=== PATIENT | female | born 1965 | race Caucasian/White ===

== ENCOUNTER → 2020-03-14 12:13 | Outpatient (BNVA) | payer OTHER, SELFPAY | PROVIDERS: Family Provider Nurse Practitioner Family; PCP Nurse Practitioner Family; Visit Provider Nurse Practitioner Family | DX: R53.83 Other fatigue (principal); F41.0 Panic disorder [episodic paroxysmal anxiety]; N95.2 Postmenopausal atrophic vaginitis; E03.9 Hypothyroidism, unspecified | CPT/HCPCS: 80053; 80061; 82607; 82652; 84443; 85025 ==

== ENCOUNTER → 2020-05-25 12:16 | Outpatient (BNVA) | payer OTHER, SELFPAY | PROVIDERS: Family Provider Nurse Practitioner Family; PCP Nurse Practitioner Family; Visit Provider Nurse Practitioner Family | DX: E03.9 Hypothyroidism, unspecified (principal); R53.83 Other fatigue; R03.0 Elevated blood-pressure reading, without diagnosis of hypertension; F41.9 Anxiety disorder, unspecified; M25.569 Pain in unspecified knee | CPT/HCPCS: 80053; 84439; 84443 ==

== ENCOUNTER 2020-11-17 13:50 | Outpatient (CLI) | payer OTHER, SELFPAY ==
--- NOTE | 2020-11-17 14:13 | MM_ITS ---
WS: [id number] BILATERAL DIGITAL SCREENING MAMMOGRAPHY WITH CAD CLINICAL INFORMATION: Z12.31 - Encounter for screening mammogram for malignant ... HISTORY: Screening mammogram. No current complaints. COMPARISON: TECHNIQUE: Bilateral CC and MLO views. FINDINGS: The breasts are composed of heterogeneous fibroglandular density tissue, which can limit the detectio n of small underlying mass lesions. No suspicious mass, asymmetry, calcifications, or architectural d istortion. No evidence of malignancy. Cluster calcifications right breast. Intramammary lymph node po sterior depth right breast. MM/[id number] IMPRESSION: BI-RADS: 2-Benign FOLLOW UP: 1 Year Follow-up Recommend return to annual screening mammography.
== END 2020-11-17 13:51 | disposition home or self-care (01) ==
PROVIDERS: PCP Nurse Practitioner Family; Visit Provider Nurse Practitioner Family
DX: Z12.31 Encounter for screening mammogram for malignant neoplasm of breast (principal)
CPT/HCPCS: 77067

== ENCOUNTER → 2020-11-18 16:06 | Outpatient (BNVA) | payer OTHER, SELFPAY | PROVIDERS: PCP Nurse Practitioner Family; Visit Provider Family Medicine | DX: N90.4 Leukoplakia of vulva (principal) | CPT/HCPCS: 88175 ==

== ENCOUNTER → 2021-04-14 15:35 | Outpatient (BNVA) | payer OTHER, SELFPAY | PROVIDERS: PCP Nurse Practitioner Family; Visit Provider Nurse Practitioner Family | DX: K21.9 Gastro-esophageal reflux disease without esophagitis (principal); R53.83 Other fatigue; E03.9 Hypothyroidism, unspecified; N90.4 Leukoplakia of vulva; L57.0 Actinic keratosis; E66.9 Obesity, unspecified | CPT/HCPCS: 80053; 80061; 84439; 84443; 84480; 85025 ==

== ENCOUNTER 2022-10-08 14:36 | Outpatient (CLI) | payer OTHER, SELFPAY ==
--- NOTE | 2022-10-08 14:59 | MM_ITS ---
WS: [id number] BILATERAL 3D TOMOSYNTHESIS DIGITAL SCREENING MAMMOGRAPHY WITH CAD CLINICAL INFORMATION: SCREENING HISTORY: Screening mammogram. No current complaints. COMPARISON: 2020 TECHNIQUE: Bilateral CC and MLO views. FINDINGS: The breasts are composed of heterogeneous fibroglandular density tissue, which can limit the detectio n of small underlying mass lesions. No suspicious mass, asymmetry, calcifications, or architectural d istortion. No evidence of malignancy. Stable clustered calcifications RIGHT breast. MM/[id number] IMPRESSION: BI-RADS: 2-Benign FOLLOW UP: 1 Year Follow-up Recommend return to annual screening mammography.
== END 2022-10-08 14:37 | disposition home or self-care (01) ==
LOC: RAD 14:40
PROVIDERS: PCP Nurse Practitioner Family; Visit Provider Nurse Practitioner Family
DX: Z12.31 Encounter for screening mammogram for malignant neoplasm of breast (principal)
CPT/HCPCS: 77063; 77067

== ENCOUNTER → 2023-08-16 13:08 | Outpatient (BNVA) | payer OTHER, SELFPAY | PROVIDERS: PCP Nurse Practitioner Family; Visit Provider Nurse Practitioner Family | DX: R09.89 Other specified symptoms and signs involving the circulatory and respiratory systems (principal); N90.4 Leukoplakia of vulva; E03.9 Hypothyroidism, unspecified; Z00.00 Encounter for general adult medical examination without abnormal findings; L57.0 Actinic keratosis; K21.9 Gastro-esophageal reflux disease without esophagitis; R03.0 Elevated blood-pressure reading, without diagnosis of hypertension | CPT/HCPCS: 80053; 80061; 83695; 84439; 84443; 84481; 85025 ==

== ENCOUNTER 2023-09-26 10:03 | Outpatient (CLI) | payer OTHER, SELFPAY ==
--- NOTE | 2023-09-26 10:15 | USCV_ITS ---
Kala Cason Age: 58 Gender: F : 1965 Exam Date: 09/26/2023 10:12 Ordering Phys: Atif Rogers APN Technologist: [place] [facility] [place]: bruit Risk Factors: Previous Vascular Surgery: Right Brachial BP: / Left Brachial BP: / Right Left Velocity (cm/s) Spectral Plaque Velocity (cm/s) Spectral Plaque Syst/Diast Broadening Syst/Diast Broadening 117.40/28.10 Prox CCA 106.50/ 19.40 117.40/30.30 Mid CCA 108.70/ 17.20 93.40/ 28.10 Distal CCA 67.30 / 15.00 97.80/ 32.50 Prox ICA / 97.80/ 34.60 Mid ICA / 110.90/45.50 Distal ICA / 180.60 ECA 152.20 1.20 ICA/CCA Antegrade Vertebral Antegrade 47.70/ 15.00 cm/s 47.60/ 15.20 cm/s Tri Subclavian Tri 174.6 213.1 0 0 FINDINGS Comparison: none available. Complete left ICA occlusion . Mild diffuse plaque right carotid artery. Antegrade vertebral arteries. CONCLUSIONS Complete occlusion left ICA. Right ICA stenosis < 50%. Dr. Keiry Mendoza DO (Electronically Signed) Final Date: 26 September 2023 14:31 S
== END 2023-09-26 10:04 | disposition home or self-care (01) ==
LOC: RAD 10:03
PROVIDERS: PCP Nurse Practitioner Family; Visit Provider Nurse Practitioner Family
DX: R09.89 Other specified symptoms and signs involving the circulatory and respiratory systems (principal); I65.23 Occlusion and stenosis of bilateral carotid arteries
CPT/HCPCS: 93880